=== PATIENT | male | born 1955 | race Caucasian/White ===

== ENCOUNTER → 2021-08-19 | Outpatient (CLI) | payer MEDICARE ==
[~2021-08-19] MED LIST: ATORVASTATIN CA20 MG PO; CYMBALTA30 MG PO; DONEPEZIL HCL10 MG PO; FAMOTIDINE20 MG PO; LISINOPRIL10 MG PO; LYRICA150 MG PO; METFORMIN HCL500 MG PO; METHOCARBAMOL750 MG PO; METOPROLOL TART25 MG PO; NAMENDA10 MG PO; NEURONTIN100 MG PO; OMEPRAZOLE40 MG PO; TRAZODONE HCL50 MG PO; ULTRAM50 MG PO; VITAMIN D; WARFARIN SODIUM3 MG PO
== END ==
LOC: MRI 08:37
PROVIDERS: ATTEND Internal Medicine
DX: M54.12 Radiculopathy, cervical region (principal)
CPT/HCPCS: 72141

== ENCOUNTER 2021-11-30 13:22 | Inpatient (IN) | payer MEDICARE ==
[~2021-11-30] VITALS: Ht 193 cm; Wt 85.3 kg
[2021-11-30] MEDS ORDERED: ACETAMINOPHEN 325 MG TAB PO STA (14:46)
[2021-11-30 15:10] LABS: BASOPHILS # (AUTO) 0.1 (0.0-0.1); BASOPHILS % 0.3 % (0.0-1.0); EOSINOPHILS % 0.1 % (0.0-6.0); HEMATOCRIT 36.1 % (38.2-49.6); HEMOGLOBIN 12.5 g/dL (14.0-18.0); LYMPHOCYTES # (AUTO) 0.5 (1.0-3.2); LYMPHOCYTES % 3.3 % (18.0-39.1); MEAN CORPUSCULAR HEMOGLOBIN 31.1 pg (28-32); MEAN CORPUSCULAR HGB CONC 34.6 g/dL (31-35); MEAN CORPUSCULAR VOLUME 89.8 fL (81-99); MONOCYTES # (AUTO) 1.1 (0.2-0.8); MONOCYTES % 6.9 % (4.4-11.3); NEUTROPHILS # (AUTO) 14.3 (2.1-6.9); NEUTROPHILS % 88.5 % (38.7-80.0); PLATELET COUNT 175 x10e3/uL (140-360); RED BLOOD COUNT 4.02 x10e6/uL (4.3-5.7); RED CELL DISTRIBUTION WIDTH 12.2 % (11.7-14.4)
[2021-11-30 15:29] LABS: ALBUMIN/GLOBULIN RATIO 0.7 (0.8-2.0); ANION GAP 17.2 mmol/L (8-16); CALCIUM 8.7 mg/dL (8.4-10.2); CREATININE, SERUM 2.68 mg/dL (0.72-1.25); POTASSIUM 4.2 mmol/L (3.5-5.1)
[2021-11-30 15:35] LABS: CREATINE KINASE MB 8.8 ng/mL (0-5.0)
[2021-11-30] MEDS ORDERED: ACETAMINOPHEN 1000 MG/100 ML IV STA (16:14)
[2021-11-30] MEDS: SODIUM CHLORIDE 0.9% 1000ML 1,000 ML IV SCH (17:25)
[2021-11-30 18:10] LABS: CLARITY,URINE SL CLOUDY (CLEAR); COLOR,URINE YELLOW (YELLOW); KETONES,URINE NEGATIVE (NEGATIVE); LEUKOCYTE ESTERASE ,URINE NEGATIVE (NEGATIVE); NITRITE,URINE NEGATIVE (NEGATIVE); PROTEIN,URINE DIPSTICK 2+ (NEGATIVE); URINE UROBILINOGEN 0.2 mg/dL (0.2 - 1)
[2021-11-30 18:11] LABS: AMPHETAMINES SCREEN,URINE NEGATIVE (NEGATIVE); BENZODIAZEPINES SCREEN,URINE NEGATIVE (NEGATIVE); PHENCYCLIDINE SCREEN,URINE NEGATIVE (NEGATIVE)
[2021-11-30 18:18] LABS: BACTERIA,URINE FEW /HPF; WBC,URINE (MAN) 0-5 /HPF (0-5)
[2021-11-30] MEDS ORDERED: DOCUSATE SODIUM 100 MG CAP PO PRN (21:30)
[2021-11-30] MEDS ORDERED: ACETAMINOPHEN 325 MG TAB PO PRN (21:30)
[2021-11-30] MEDS ORDERED: ONDANSETRON HCL INJ 2MG/ML 2ML 2 MG/ML VIAL IV PRN (21:30)
[2021-11-30 22:14] VITALS: BP 154/61
[2021-11-30 22:45] VITALS: BP 154/61
[2021-11-30 23:13] VITALS: BP 154/61
[2021-12-01] MEDS: SODIUM CHLORIDE 0.9% 1000ML 1,000 ML IV SCH ×2 (00:05→05:40)
[2021-12-01 00:35] LABS: CREATINE KINASE MB 6.6 ng/mL (0-5.0)
[2021-12-01] MEDS ORDERED: VITAMIN D250 MCG PO (03:41)
[2021-12-01] MEDS ORDERED: WARFARIN SODIUM1 MG PO (03:41)
[2021-12-01] MEDS ORDERED: GLYCOPYRROL PO (03:41)
[2021-12-01 05:43] LABS: BASOPHILS % 0.2 % (0.0-1.0); EOSINOPHILS % 0.1 % (0.0-6.0); HEMOGLOBIN 11.1 g/dL (14.0-18.0); LYMPHOCYTES # (AUTO) 0.7 (1.0-3.2); LYMPHOCYTES % 5.1 % (18.0-39.1); MEAN CORPUSCULAR HEMOGLOBIN 30.8 pg (28-32); MEAN CORPUSCULAR HGB CONC 32.6 g/dL (31-35); MEAN CORPUSCULAR VOLUME 94.4 fL (81-99); MONOCYTES # (AUTO) 0.9 (0.2-0.8); MONOCYTES % 6.6 % (4.4-11.3); NEUTROPHILS # (AUTO) 11.3 (2.1-6.9); NEUTROPHILS % 87.5 % (38.7-80.0); PLATELET COUNT 155 x10e3/uL (140-360); RED CELL DISTRIBUTION WIDTH 12.5 % (11.7-14.4)
[2021-12-01 06:05] LABS: ALBUMIN 2.6 g/dL (3.5-5.0); ALBUMIN/GLOBULIN RATIO 0.7 (0.8-2.0); CALCIUM 8.3 mg/dL (8.4-10.2); CREATININE, SERUM 2.5 mg/dL (0.72-1.25)
[2021-12-01 08:43] LABS: ANION GAP 16.7 mmol/L (8-16); CALCIUM 8.4 mg/dL (8.4-10.2); CREATININE, SERUM 2.56 mg/dL (0.72-1.25); POTASSIUM 3.7 mmol/L (3.5-5.1)
[2021-12-01] MEDS ORDERED: LOPERAMIDE HCL 2 MG CAP PO PRN (08:45)
[2021-12-01 08:52] VITALS: BP 145/70
[2021-12-01 09:06] LABS: CREATINE KINASE MB 3.7 ng/mL (0-5.0)
[2021-12-01] MEDS: SODIUM BICARBONATE 8.4% 50 ML in SODIUM CHLORIDE 0.45% 1,000 ML IV SCH ×3 (09:43→22:00)
[2021-12-01] MEDS: METRONIDAZOLE 250MG/NS 50ML 50 ML IV SCH ×2 (09:43→17:20)
[2021-12-01 12:55] VITALS: BP 141/74
[2021-12-01] MEDS ORDERED: METRONIDAZOLE 500MG/NS 100ML 100 ML IV SCH (14:00)
[2021-12-01] MEDS ORDERED: Vancomycin IV 1 GM in SODIUM CHLORIDE 0.9% 250ML 250 ML IV ONE ×2 (15:30→17:30)
[2021-12-01 16:36] VITALS: BP 160/73
[2021-12-01 17:30] LABS: CREATINE KINASE MB 2.9 ng/mL (0-5.0)
[2021-12-01 20:00] VITALS: BP 133/62
[2021-12-01 21:00] VITALS: BP 133/62
[2021-12-02] VITALS (8 sets, daily range): BP systolic 133–174; BP diastolic 60–84
[2021-12-02 01:11] LABS: % IRON SATURATION 5 % (15-50); IRON 13 ug/dL (65-175); TOTAL IRON BINDING CAPACITY 238 ug/dL (261-478); TRANSFERRIN 170 mg/dL (174-364)
[2021-12-02] MEDS: METRONIDAZOLE 250MG/NS 50ML 50 ML IV SCH ×3 (01:39→18:27)
[2021-12-02] MEDS: SODIUM BICARBONATE 8.4% 50 ML in SODIUM CHLORIDE 0.45% 1,000 ML IV SCH ×4 (04:00→22:00)
[2021-12-02] MEDS ORDERED: SODIUM CHLORIDE 0.45% 1,000 ML ONE (04:30)
[2021-12-02 08:00] LABS: BASOPHILS % 0.1 % (0.0-1.0); EOSINOPHILS # (AUTO) 0.1 (0.0-0.4); EOSINOPHILS % 1.1 % (0.0-6.0); HEMOGLOBIN 11.3 g/dL (14.0-18.0); LYMPHOCYTES # (AUTO) 0.6 (1.0-3.2); LYMPHOCYTES % 8.3 % (18.0-39.1); MEAN CORPUSCULAR HEMOGLOBIN 30.9 pg (28-32); MEAN CORPUSCULAR HGB CONC 33.2 g/dL (31-35); MEAN CORPUSCULAR VOLUME 92.9 fL (81-99); MONOCYTES # (AUTO) 0.7 (0.2-0.8); MONOCYTES % 9.5 % (4.4-11.3); NEUTROPHILS % 80.5 % (38.7-80.0); PLATELET COUNT 173 x10e3/uL (140-360); RED BLOOD COUNT 3.66 x10e6/uL (4.3-5.7); RED CELL DISTRIBUTION WIDTH 12.1 % (11.7-14.4)
[2021-12-02 08:25] LABS: ANION GAP 15.7 mmol/L (8-16); CALCIUM 8.4 mg/dL (8.4-10.2); CREATININE, SERUM 2.33 mg/dL (0.72-1.25); POTASSIUM 3.7 mmol/L (3.5-5.1)
[2021-12-02] MEDS ORDERED: Vancomycin IV 1 GM in SODIUM CHLORIDE 0.9% 250ML 250 ML IV ONE (08:30)
[2021-12-02 17:02] LABS: INR 1.58; PROTHROMBIN TIME 20.2 seconds (11.9-14.5)
[2021-12-02] MEDS: MEMANTINE 10 MG TAB PO SCH (18:53)
[2021-12-02] MEDS: WARFARIN SOD 3 MG TAB PO SCH (18:53)
[2021-12-02] MEDS: WARFARIN SOD 1 MG TAB PO SCH (18:53)
[2021-12-03] VITALS (9 sets, daily range): BP systolic 129–176; BP diastolic 49–78
[2021-12-03] MEDS ORDERED: CYANOCOBALAMIN INJ 1,000 MCG/ML VIAL IM ONE
[2021-12-03] MEDS: MELATONIN 5 MG TABLET PO PRN ×2 (01:00→20:54)
[2021-12-03] MEDS: METRONIDAZOLE 250MG/NS 50ML 50 ML IV SCH ×3 (02:37→17:13)
[2021-12-03] MEDS: SODIUM BICARBONATE 8.4% 50 ML in SODIUM CHLORIDE 0.45% 1,000 ML IV SCH ×4 (04:12→20:54)
[2021-12-03] MEDS: CYANOCOBALAMIN INJ 1,000 MCG/ML VIAL IM SCH (08:24)
[2021-12-03] MEDS: MEMANTINE 10 MG TAB PO SCH (08:24)
[2021-12-03 08:39] LABS: BASOPHILS % 0.2 % (0.0-1.0); EOSINOPHILS # (AUTO) 0.1 (0.0-0.4); EOSINOPHILS % 1.2 % (0.0-6.0); HEMATOCRIT 29.2 % (38.2-49.6); HEMOGLOBIN 10.3 g/dL (14.0-18.0); LYMPHOCYTES # (AUTO) 0.5 (1.0-3.2); LYMPHOCYTES % 7.6 % (18.0-39.1); MEAN CORPUSCULAR HEMOGLOBIN 31.1 pg (28-32); MEAN CORPUSCULAR HGB CONC 35.3 g/dL (31-35); MEAN CORPUSCULAR VOLUME 88.2 fL (81-99); MONOCYTES # (AUTO) 0.5 (0.2-0.8); MONOCYTES % 8.4 % (4.4-11.3); NEUTROPHILS # (AUTO) 5.3 (2.1-6.9); NEUTROPHILS % 82.1 % (38.7-80.0); PLATELET COUNT 172 x10e3/uL (140-360); RED BLOOD COUNT 3.31 x10e6/uL (4.3-5.7); RED CELL DISTRIBUTION WIDTH 11.9 % (11.7-14.4)
[2021-12-03] MEDS: HYDRALAZINE HCL 10 MG TAB PO SCH ×3 (08:45→20:54)
[2021-12-03 08:54] LABS: INR 1.83; PROTHROMBIN TIME 22.6 seconds (11.9-14.5)
[2021-12-03 09:01] LABS: ANION GAP 15.2 mmol/L (8-16); CALCIUM 8.3 mg/dL (8.4-10.2); CREATININE, SERUM 2.06 mg/dL (0.72-1.25); POTASSIUM 3.2 mmol/L (3.5-5.1)
[2021-12-03] MEDS: IRON SUCROSE 100 MG in SODIUM CHLORIDE 0.9% 100 ML IV SCH (10:06)
[2021-12-03] MEDS ORDERED: ONDANSETRON HCL 4 MG ORAL DISINTEGRATING TAB PO PRN (11:00)
[2021-12-03] MEDS: POTASSIUM CHLORIDE 10MEQ EA PO SCH (15:49)
[2021-12-03] MEDS: WARFARIN SOD 1 MG TAB PO SCH (16:51)
[2021-12-03] MEDS: WARFARIN SOD 3 MG TAB PO SCH (16:52)
[2021-12-04] VITALS (8 sets, daily range): BP systolic 132–180; BP diastolic 48–81
[2021-12-04] MEDS: METRONIDAZOLE 250MG/NS 50ML 50 ML IV SCH ×3 (02:44→18:10)
[2021-12-04] MEDS: HYDRALAZINE HCL 10 MG TAB PO SCH (05:10)
[2021-12-04 08:54] LABS: BASOPHILS % 0.3 % (0.0-1.0); EOSINOPHILS # (AUTO) 0.1 (0.0-0.4); EOSINOPHILS % 1.2 % (0.0-6.0); HEMATOCRIT 33.7 % (38.2-49.6); HEMOGLOBIN 11.7 g/dL (14.0-18.0); LYMPHOCYTES # (AUTO) 0.8 (1.0-3.2); LYMPHOCYTES % 10.1 % (18.0-39.1); MEAN CORPUSCULAR HGB CONC 34.7 g/dL (31-35); MEAN CORPUSCULAR VOLUME 89.2 fL (81-99); MONOCYTES # (AUTO) 0.5 (0.2-0.8); MONOCYTES % 6.7 % (4.4-11.3); NEUTROPHILS % 80.8 % (38.7-80.0); PLATELET COUNT 222 x10e3/uL (140-360); RED BLOOD COUNT 3.78 x10e6/uL (4.3-5.7)
[2021-12-04] MEDS: POTASSIUM CHLORIDE 10MEQ EA PO SCH (08:59)
[2021-12-04] MEDS: CYANOCOBALAMIN INJ 1,000 MCG/ML VIAL IM SCH (08:59)
[2021-12-04 09:12] LABS: INR 2.36; PROTHROMBIN TIME 27.6 seconds (11.9-14.5)
[2021-12-04 09:18] LABS: ANION GAP 14.3 mmol/L (8-16); CALCIUM 8.7 mg/dL (8.4-10.2); CREATININE, SERUM 1.98 mg/dL (0.72-1.25); POTASSIUM 3.3 mmol/L (3.5-5.1)
[2021-12-04] MEDS: MEMANTINE 10 MG TAB PO SCH (10:42)
[2021-12-04] MEDS: IRON SUCROSE 100 MG in SODIUM CHLORIDE 0.9% 100 ML IV SCH (12:25)
[2021-12-04] MEDS ORDERED: POTASSIUM CHLORIDE 20 MEQ TAB CR PO ONE (14:00)
[2021-12-04] MEDS: HYDRALAZINE HCL 25 MG TAB PO SCH ×2 (15:29→21:13)
[2021-12-04] MEDS: WARFARIN SOD 3 MG TAB PO SCH (17:29)
[2021-12-04] MEDS: WARFARIN SOD 1 MG TAB PO SCH (17:29)
[2021-12-04] MEDS: SODIUM BICARBONATE 8.4% 50 ML in SODIUM CHLORIDE 0.45% 1,000 ML IV SCH (21:14)
[2021-12-05] VITALS (7 sets, daily range): BP systolic 144–180; BP diastolic 61–85
[2021-12-05] MEDS: METRONIDAZOLE 250MG/NS 50ML 50 ML IV SCH ×3 (02:07→17:39)
[2021-12-05] MEDS: SODIUM BICARBONATE 8.4% 50 ML in SODIUM CHLORIDE 0.45% 1,000 ML IV SCH ×2 (03:30→21:56)
[2021-12-05] MEDS: HYDRALAZINE HCL 25 MG TAB PO SCH ×3 (06:22→21:58)
[2021-12-05] MEDS: MEMANTINE 10 MG TAB PO SCH (08:47)
[2021-12-05] MEDS: CYANOCOBALAMIN INJ 1,000 MCG/ML VIAL IM SCH (08:48)
[2021-12-05] MEDS: POTASSIUM CHLORIDE 10MEQ EA PO SCH (08:48)
[2021-12-05 10:32] LABS: INR 2.37; PROTHROMBIN TIME 27.7 seconds (11.9-14.5)
[2021-12-05 10:47] LABS: ANION GAP 17.8 mmol/L (8-16); CALCIUM 8.5 mg/dL (8.4-10.2); CREATININE, SERUM 1.85 mg/dL (0.72-1.25); PHOSPHORUS 2.9 MG/DL (2.3-4.7); POTASSIUM 3.8 mmol/L (3.5-5.1)
[2021-12-05] MEDS: IRON SUCROSE 100 MG in SODIUM CHLORIDE 0.9% 100 ML IV SCH (11:43)
[2021-12-05] MEDS: WARFARIN SOD 1 MG TAB PO SCH (17:37)
[2021-12-05] MEDS: WARFARIN SOD 3 MG TAB PO SCH (17:38)
[2021-12-06 00:40] VITALS: BP 149/95
[2021-12-06] MEDS: METRONIDAZOLE 250MG/NS 50ML 50 ML IV SCH ×2 (01:52→09:06)
[2021-12-06 04:00] VITALS: BP 168/75
[2021-12-06] MEDS: HYDRALAZINE HCL 25 MG TAB PO SCH (05:21)
[2021-12-06] MEDS ORDERED: CEPHALEXIN500 MG PO (07:30)
[2021-12-06] MEDS: SODIUM BICARBONATE 8.4% 50 ML in SODIUM CHLORIDE 0.45% 1,000 ML IV SCH (07:30)
[2021-12-06] MEDS ORDERED: HYDRALAZINE HCL50 MG PO (07:30)
[2021-12-06 08:01] VITALS: BP 143/55
[2021-12-06 08:12] VITALS: BP 143/55
[2021-12-06 08:13] LABS: INR 3.34; PROTHROMBIN TIME 36.2 seconds (11.9-14.5)
[2021-12-06 08:16] VITALS: BP 143/55
[2021-12-06] MEDS: CYANOCOBALAMIN INJ 1,000 MCG/ML VIAL IM SCH (09:00)
[2021-12-06] MEDS: IRON SUCROSE 100 MG in SODIUM CHLORIDE 0.9% 100 ML IV SCH (09:00)
== END 2021-12-06 11:09 | disposition home health service (06) | DRG 871 ==
LOC: ER 13:35 → ERHOLD 16:35 → MED/SURG2 22:11
PROVIDERS: ADMIT Internal Medicine; ATTEND Internal Medicine
DX: A41.81 Sepsis due to Enterococcus (principal); G93.41 Metabolic encephalopathy; M62.82 Rhabdomyolysis; E87.2 Acidosis; I50.22 Chronic systolic (congestive) heart failure; N17.9 Acute kidney failure, unspecified; R65.20 Severe sepsis without septic shock; K58.0 Irritable bowel syndrome with diarrhea; F03.90 Unspecified dementia, unspecified severity, without behavioral disturbance, psychotic disturbance, mood disturbance, and anxiety; Z87.11 Personal history of peptic ulcer disease; H91.90 Unspecified hearing loss, unspecified ear; Z79.01 Long term (current) use of anticoagulants; Z95.2 Presence of prosthetic heart valve; Z91.81 History of falling; I11.0 Hypertensive heart disease with heart failure; D51.9 Vitamin B12 deficiency anemia, unspecified; D50.9 Iron deficiency anemia, unspecified; E78.5 Hyperlipidemia, unspecified; E86.0 Dehydration; Z66 Do not resuscitate; E87.6 Hypokalemia; Z20.822 Contact with and (suspected) exposure to COVID-19; E11.69 Type 2 diabetes mellitus with other specified complication
CPT/HCPCS: 36415; 70450; 71046; 72125; 76770; 80048; 80053; 80307; 80320; 81001; 82140; 82270; 82550; 82553; 82607; 82746; 83540; 83605; 83630; 83690; 83735; 83993; 84100; 84466; 84484; 85025; 85045; 85610; 87040; 87045; 87071; 87177; 87186; 87205; 87324; 87449; 93005; 93306; 94799; 96360; 99251; 99284; J1756; J2543; J3370; J3420; J7030; J7050

== ENCOUNTER 2021-12-12 10:37 | Emergency (ER) | payer MEDICARE ==
[~2021-12-12] VITALS: Ht 193 cm; Wt 85.3 kg
[~2021-12-12 10:37] MED LIST changes: +CEPHALEXIN500 MG PO; +GLYCOPYRROL PO; +HYDRALAZINE HCL50 MG PO; +VITAMIN D250 MCG PO; +WARFARIN SODIUM1 MG PO
== END 2021-12-12 11:15 | disposition home or self-care (01) ==
LOC: ER 10:41
DX: I10 Essential (primary) hypertension (principal); G30.9 Alzheimer's disease, unspecified; F02.80 Dementia in other diseases classified elsewhere, unspecified severity, without behavioral disturbance, psychotic disturbance, mood disturbance, and anxiety
CPT/HCPCS: 99282